=== PATIENT | female | born 1975 | race Caucasian/White ===

== ENCOUNTER 2020-04-16 10:32 | Emergency (ER) | payer MEDICAID ==
[~2020-04-16] VITALS: Ht 167.6 cm; Wt 68.2 kg
[2020-04-16 10:38] VITALS: Ht 167.6 cm; Wt 68.2 kg
[2020-04-16] MEDS ORDERED: SYNTHROID75 MCG PO (10:39)
[2020-04-16 11:19] LABS: BASOPHILS 0.3 % (0-2); EOSINOPHILS 1.6 % (0-7); IMMATURE GRANULOCYTES 0.1 % (0-5); LYMPHOCYTES 30.7 % (15-50); MCH 30.5 pg (26.0-34.0); MCHC 33.3 g/dL (31.0-37.0); MCV 91.4 fL (80.0-100.0); MEAN PLATELET VOLUME 9.7 fL (7.4-10.4); MONOCYTES 6.5 % (2-11); NEUTROPHILS 60.8 % (40-80); PLATELET COUNT 256 10x3/uL (130-400); RBC 3.94 10x6/uL (4.00-5.40); WBC 6.7 10x3/uL (4.8-10.8)
[2020-04-16 11:33] LABS: CALC OSMOLALITY 279 mosm/kg (275-300); CALCIUM 8.8 mg/dL (8.5-10.1); CARBON DIOXIDE 28.6 mmol/L (21.0-32.0); CHLORIDE - SERUM 104 mmol/L (98-107); CREATININE - SERUM 0.8 mg/dL (0.6-1.3); GLUCOSE 109 mg/dL (74-106); POTASSIUM - SERUM 3.6 mmol/L (3.5-5.1); SODIUM 139 mmol/L (136-145); UREA NITROGEN 14 mg/dL (7-18); eGFR NON AFRICAN AMERICAN 83 mL/min (90-120)
[2020-04-16 11:38] LABS: BILIRUBIN NEGATIVE (NEGATIVE); GLUCOSE NEGATIVE (NEGATIVE); HCG URINE NEGATIVE (NEGATIVE); KETONE NEGATIVE (NEGATIVE); NITRITE NEGATIVE (NEGATIVE); SPECIFIC GRAVITY 1.005 (1.005-1.020); UROBILINOGEN NORMAL (NORMAL)
[2020-04-16 11:39] LABS: ALBUMIN 3.8 g/dL (3.4-5.0); ALKALINE PHOSPHATASE 38 U/L (30-120); ALT (SGPT) 19 U/L (10-68); BILIRUBIN - TOTAL 0.38 mg/dL (0.2-1.3); C-REACTIVE PROTEIN 0.3 mg/dL (0.0-0.9); PROTEIN - SERUM 6.9 g/dL (6.4-8.2)
[2020-04-16 11:39] LABS: BACTERIA MODERATE /hpf (NEGATIVE); EPITHELIAL CELLS OCC /hpf (0-5); RED CELLS - URINE RARE /hpf (0-5)
[2020-04-16 12:57] LABS: CKMB 0.4 U/L (0.0-3.6); CREATINE KINASE 52 UL (21-215); TROPONIN-I < 0.017 ng/mL (0.000-0.060)
[2020-04-16] MEDS ORDERED: OMNICEF300 MG PO (13:42)
[2020-04-16 14:14] VITALS: BP 118/70
== END 2020-04-16 14:14 | disposition home or self-care (01) ==
LOC: D.ER 10:32
PROVIDERS: Family Medicine
DX: N39.0 Urinary tract infection, site not specified (principal); E07.9 Disorder of thyroid, unspecified; R05 Cough; R06.00 Dyspnea, unspecified; R07.9 Chest pain, unspecified; R10.9 Unspecified abdominal pain; M79.606 Pain in leg, unspecified